=== PATIENT | female | born 1945 | race Caucasian/White ===

== ENCOUNTER 2017-09-30 09:30 | Emergency (ER) | payer MEDICARE, OTHER ==
[~2017-09-30] VITALS: Ht 165.1 cm; Wt 86.4 kg
[~2017-09-30 09:30] MED LIST: CLIN300C5 PO; DICL50TA PO; RISP2TAB2 PO; ZOLP10TA3 PO
[2017-09-30 09:42] VITALS: BP 165/86; PULSE 79; RESP 16; TEMP 98.4; O2SAT 97
--- NOTE | 2017-09-30 11:18 | PD ---
HPI Chief Complaint: Cold / Flu Symptoms Time Seen by Provider: 11:00 Travel History International Travel<30 days: No Contact w/Intl Traveler<30days: No Traveled to known affect area: No History of Present Illness HPI 72-year-old female presents to the emergency room for evaluation of mildly productive cough for the past 5 days. States it started off as a sore throat, congestion, and cough 5 days ago and almost completely resolved yesterday but when she woke up this morning her symptoms returned. She reports left ear pain , mild congestion, mild sore throat, and cough. She denies any fevers, chills, or night sweats. Slightly decreased appetite but she has been able to eat and drink. She only takes Ambien and Risperdal. PFSH Past Medical History Hx Anticoagulant Therapy: No Bipolar Disorder: Yes Cancer: No Cardiovascular Problems: Yes (HTN) Cerebrovascular Accident: Yes (CVA) Diabetes: No Diminished Hearing: No Endocrine: No Gastrointestinal Disorders: No Genitourinary: No Hepatitis: No Hiatal Hernia: No Hypertension: Yes Immune Disorder: No Implanted Vascular Access Dvce: Yes Medical other: No Musculoskeletal: Yes (ARTHRITIS RIGHT SHOULDER) Neurologic: Yes (STROKE 96') Psychiatric: Yes (BIPOLAR) Reproductive: No Respiratory: No Thyroid Disease: No Tetanus Vaccination: Unknown ?: Not Menopausal: Yes : 3 Para: 3 Past Surgical History Joint Replacement: Yes (BILATERAL KNEE) Neurologic Surgery: Yes (LUMBAR LAMINECTOMY WITH DISKECTOMY) Other Surgery: Yes (right shoulder) Social History Alcohol Use: No Tobacco Use: No Substance Use: No Allergies-Medications (Allergen,Severity, Reaction): Coded Allergies: Sulfa (Sulfonamide Antibiotics) (Unverified Allergy, Intermediate, Rash, ) Reported Meds & Prescriptions Reported Meds & Active Scripts Active Reported Risperidone 2 Mg Tab 2 Mg PO DAILY Zolpidem (Zolpidem Tartrate) 10 Mg Tab 10 Mg PO HS PRN Review of Systems Except as stated in HPI: all other systems reviewed are Neg Physical Exam Narrative GENERAL: Well-nourished, well-developed female in no acute distress. Afebrile. Ambulatory. SKIN: Focused skin assessment warm/dry. HEAD: Normocephalic. EYES: No scleral icterus. No injection or drainage. ENT: Mucosa pink and moist. No erythema or exudates. No uvular edema. No uvular , palatal, or tonsillar deviation. Airway patent. Nasal turbinates appear normal without nasal blood, purulent drainage or septal hematoma. EARS: Bilateral pinnae and external canals appear within normal limits. Bilateral cerumen impaction. NECK: Supple, trachea midline. No JVD or lymphadenopathy. CARDIOVASCULAR: Regular rate and rhythm without murmurs, gallops, or rubs. RESPIRATORY: Breath sounds equal bilaterally. No accessory muscle use. No crackles, rales, wheezes, or rhonchi. Data Data Last Documented VS Vital Signs Date Time Temp Pulse Resp B/P (MAP) Pulse Ox O2 Delivery O2 Flow Rate FiO2 09/30/17 09:42 98.4 79 16 165/86 (112) 97 Orders Orders Influenzae A/B Antigen (09/30/17 11:13) Chest, Pa & Lat (09/30/17 ) [facility] Medical Decision Making Medical Screen Exam Complete: Yes Emergency Medical Condition: Yes Medical Record Reviewed: Yes Differential Diagnosis Flu, pneumonia, URI Narrative Course 72-year-old otherwise healthy female presents to the emergency room for evaluation of cough and cold symptoms for the past 5 days. Symptoms improved yesterday but returned this morning. Patient has had no fevers. She is coughing infrequently in the ED. Physical exam is reassuring. Vital signs stable. Lung sounds clear and equal bilaterally. Throat is clear without erythema. Rapid influenza is negative. Chest x-ray shows enlarged heart which patient was made aware of, but no evidence of pneumonia. Patient was reassured and discharged with prescription for Tessalon Perles. Told to follow-up with her primary care physician if symptoms persist or return for worsening symptoms. She understands and agrees to plan. Diagnosis Primary Impression: Upper respiratory infection Qualified Codes: J00 - Acute nasopharyngitis [common cold] Referrals: Primary Care Physician Additional Instructions: Rest and drink plenty of fluids. Continue [id number] cough and cold medications as needed for symptoms. Tessalon Perles as directed, as needed for cough. Follow-up with a primary care physician. Return to the emergency room for worsening symptoms. Disposition: 01 DISCHARGE HOME Condition: Stable Whtiley Gimenez Sep 30, 2017 11:18
--- NOTE | 2017-09-30 11:46 | RADRPT ---
EXAM DATE/TIME: 09/30/2017 11:38 [place] COMPARISON: No previous studies available for comparison. INDICATIONS : Sore throat, cough, ear ache x 5 days. MEDICAL HISTORY : Arthritis. Hypertension Stroke. CVA. SURGICAL HISTORY : Total knee replacement, left. Total knee replacement, right. Right shoulder. Lumbar laminectomy. ENCOUNTER: Initial ACUITY: 4 - 6 days PAIN SCORE: 0/10 LOCATION: chest FINDINGS: PA and lateral views of the chest demonstrate the lungs to be symmetrically aerated without evidence of mass, infiltrate or effusion. Heart size is upper limits of normal.. Osseous structures are intac t. CONCLUSION: 1. Heart size is upper limits of normal and well compensated. 2. Lungs are clear. Gwyn Barnhart MD on September 30, 2017 at 11:42 Board Certified Radiologist. This report was verified electronically.
[2017-09-30] MEDS ORDERED: BENZ100 PO (12:03)
== END 2017-09-30 12:08 | disposition home or self-care (01) ==
LOC: PHEFT 09:30
DX: J00 Acute nasopharyngitis [common cold] (principal); F31.9 Bipolar disorder, unspecified; I10 Essential (primary) hypertension; M19.011 Primary osteoarthritis, right shoulder; Z86.73 Personal history of transient ischemic attack (TIA), and cerebral infarction without residual deficits
CPT/HCPCS: 71046; 87804; 99284